=== PATIENT | male | born 1990 | race Caucasian/White ===

== ENCOUNTER 2016-05-06 14:14 | Emergency (ER) | payer MEDICAID ==
[2016-05-06 14:21] VITALS: BP 154/95
== END 2016-05-06 17:11 | disposition left against medical advice (07) ==
LOC: ED 14:14
DX: Z53.21 Procedure and treatment not carried out due to patient leaving prior to being seen by health care provider (principal)

== ENCOUNTER 2016-12-06 00:22 | Emergency (ER) | payer SELFPAY ==
[~2016-12-06] VITALS: Ht 185.4 cm; Wt 208.7 kg
[2016-12-06 01:05] LABS: CALCIUM 8.9 mg/dL (8.5-10.1); CARBON DIOXIDE 31.9 mmol/L (21-32); CHLORIDE SERUM 104 mmol/L (98-107); GFR1 > 60 mL/min; GLUCOSE SERUM 121 mg/dL (74-106); POTASSIUM SERUM 3.3 mmol/L (3.5-5.1); SODIUM SERUM 142 mmol/L (136-145)
[2016-12-06 01:07] LABS: PLATELET COUNT 346 x10^3mcL (130-400); RED CELL DISTRIBUTION WIDTH 13.6 % (11.5-14.5)
[2016-12-06 01:21] LABS: ALKALINE PHOSPHATASE 81 U/L (46-116); ALT/SGPT 78 U/L (16-63); AST/SGOT 42 U/L (15-37); BILIRUBIN TOTAL 0.79 mg/dL (0.20-1.00)
[2016-12-06 01:39] LABS: TOTAL PROTEIN, SERUM 8.4 g/dL (6.4-8.2)
[2016-12-06 03:24] VITALS: BP 133/84
== END 2016-12-06 02:05 | disposition home or self-care (01) ==
LOC: ED 00:22
PROVIDERS: Emergency Medicine
DX: R07.89 Other chest pain (principal)
CPT/HCPCS: 36415; 83880; J1885; Q0092

== ENCOUNTER 2016-12-15 01:58 | Emergency (ER) | payer MEDICAID ==
[2016-12-15 03:13] LABS: CALCIUM 8.2 mg/dL (8.5-10.1); CARBON DIOXIDE 28.4 mmol/L (21-32); CHLORIDE SERUM 108 mmol/L (98-107); CREATININE SERUM 0.9 mg/dL (0.7-1.3); GFR1 > 60 mL/min; GLUCOSE SERUM 127 mg/dL (74-106); POTASSIUM SERUM 3.5 mmol/L (3.5-5.1); SODIUM SERUM 141 mmol/L (136-145)
[2016-12-15 03:25] LABS: BASOPHIL % 0.4 % (0-2); PLATELET COUNT 291 x10^3mcL (130-400); RED CELL DISTRIBUTION WIDTH 14.5 % (11.5-14.5)
[2016-12-15 06:10] VITALS: BP 135/91
== END 2016-12-15 06:10 | disposition home or self-care (01) ==
LOC: ED 01:58
PROVIDERS: Emergency Medicine
DX: R07.89 Other chest pain (principal); R03.0 Elevated blood-pressure reading, without diagnosis of hypertension
CPT/HCPCS: 36415

== ENCOUNTER 2017-02-22 00:26 | Emergency (ER) | payer MEDICAID ==
[~2017-02-22] VITALS: Ht 185.4 cm; Wt 217.7 kg
[2017-02-22 00:34] VITALS: BP 121/70; Ht 185.4 cm; Wt 217.7 kg
== END 2017-02-22 02:59 | disposition left against medical advice (07) ==
LOC: ED 00:26
DX: Z53.21 Procedure and treatment not carried out due to patient leaving prior to being seen by health care provider (principal)

== ENCOUNTER 2017-07-12 19:00 | Emergency (ER) | payer MEDICAID ==
[~2017-07-12] VITALS: Ht 185.4 cm; Wt 218.2 kg
[2017-07-12 19:03] VITALS: Ht 185.4 cm; Wt 218.2 kg
[2017-07-12 20:34] VITALS: BP 142/95
== END 2017-07-12 20:38 | disposition home or self-care (01) ==
LOC: ED 19:00
DX: H66.92 Otitis media, unspecified, left ear (principal)

== ENCOUNTER 2017-12-13 23:03 | Emergency (ER) | payer MEDICAID ==
[~2017-12-13] VITALS: Ht 185.4 cm; Wt 218.2 kg
[2017-12-13 23:07] VITALS: Ht 185.4 cm; Wt 218.2 kg
[2017-12-13 23:41] LABS: BASOPHIL % 1.1 % (0-2); PLATELET COUNT 201 x10^3mcL (130-400); RED CELL DISTRIBUTION WIDTH 14.1 % (11.5-14.5)
[2017-12-13 23:52] LABS: CALCIUM 8.2 mg/dL (8.5-10.1); CARBON DIOXIDE 27.2 mmol/L (21-32); CHLORIDE SERUM 102 mmol/L (98-107); GFR1 > 60 mL/min; GLUCOSE SERUM 263 mg/dL (74-106); POTASSIUM SERUM 3.2 mmol/L (3.5-5.1); SODIUM SERUM 135 mmol/L (136-145)
[2017-12-13 23:57] LABS: ALKALINE PHOSPHATASE 135 U/L (46-116); ALT/SGPT 142 U/L (16-63); AST/SGOT 77 U/L (15-37); BILIRUBIN TOTAL 0.5 mg/dL (0.20-1.00); CHOLESTEROL 167 mg/dL (<200); TOTAL PROTEIN, SERUM 7.5 g/dL (6.4-8.2)
[2017-12-14 00:01] LABS: ALBUMIN 3.2 g/dL (3.4-5.0); CHOLESTEROL/HDL RATIO 6.2; HDL CHOLESTEROL 27 mg/dL (40-60); TRIGLYCERIDES 399 mg/dL (<150)
[2017-12-14 00:36] LABS: AMPHETAMINE QUAL UR NONE DETECTED (See below)
[2017-12-14 01:41] VITALS: BP 154/63
== END 2017-12-14 01:41 | disposition home or self-care (01) ==
LOC: ED 23:03
PROVIDERS: Emergency Medicine
DX: R07.89 Other chest pain (principal); E11.65 Type 2 diabetes mellitus with hyperglycemia; R10.9 Unspecified abdominal pain; E78.00 Pure hypercholesterolemia, unspecified; E66.01 Morbid (severe) obesity due to excess calories; Z68.44 Body mass index [BMI] 60.0-69.9, adult; Z87.19 Personal history of other diseases of the digestive system
CPT/HCPCS: 36415; 87804